=== PATIENT | male | born 1995 | race American Indian/Alaskan Native ===

== ENCOUNTER 2020-08-16 21:34 | Emergency (ER) | payer SELFPAY ==
[2020-08-16] MEDS ORDERED: HYDROmorphone 1 MG/1 ML INJ IV ONE (21:39)
[2020-08-16] MEDS ORDERED: ONDANSETRON 4 MG/2 ML INJ IV ONE ×2 (21:39→21:40)
[2020-08-16] MEDS ORDERED: HYDROmorphone 2 MG/1 ML INJ IV ONE ×2 (21:40→22:40)
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
[2020-08-16] MEDS ORDERED: DIPHtheria,PERTUSSIS(ACELL),TETANUS VACCINE/PF 0.5 ML VIAL IM ONE (21:46)
[2020-08-16] MEDS ORDERED: SODIUM CHLORIDE 0.9% 1000 ML 1,000 ML IV ONE (21:46)
[2020-08-16 21:59] LABS: Hematocrit 44.2 % (35.5-45.6); Hemoglobin 14.7 gm/dl (11.8-15.2); Mean Corpuscular HGB Conc 33 % (32-34); Mean Corpuscular Volume 91 fl (84-94); Platelet Count 276 K/mm3 (140-440); Red Blood Count 4.87 M/mm3 (3.65-5.03); Red Cell Distribution Width 13.3 % (13.2-15.2)
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
[2020-08-16 22:12] LABS: Alanine Aminotransferase 19 units/L (7-56); Albumin 4.6 g/dL (3.9-5); BUN/Creatinine Ratio 11; Blood Urea Nitrogen 13 mg/dL (9-20); Calcium 9.5 mg/dL (8.4-10.2); Hemolysis Index 19
[2020-08-17] MEDS ORDERED: HYDROmorphone 1 MG/1 ML INJ IV ONE (00:15)
[2020-08-17] MEDS ORDERED: SODIUM CHLORIDE 0.9% IRR 500 ML BOTTLE IR ONE (00:16)
[2020-08-17 02:04] VITALS: BP 130/53
== END 2020-08-17 00:20 | disposition other institution (70) ==
LOC: ED 21:34
DX: S61.432A Puncture wound without foreign body of left hand, initial encounter (principal); F17.200 Nicotine dependence, unspecified, uncomplicated; W34.09XA Accidental discharge from other specified firearms, initial encounter; Y93.89 Activity, other specified; Y92.89 Other specified places as the place of occurrence of the external cause; Y99.8 Other external cause status
CPT/HCPCS: 36415; 73130; 80053; 85027; 86850; 86900; 86901; 90471; 90715; 96361; 96365; 96375; 96376; 99291; J0690; J1170; J2405; J7030